=== PATIENT | female | born 1970 | race African-American/Black ===

== ENCOUNTER 2019-02-03 02:47 | Inpatient (IN) ==
[2019-02-03] MEDS ORDERED: ALTEPLASE 6 MG in SODIUM CHLORIDE 0.9% 120 ML IV SCH (03:00)
[2019-02-03] MEDS ORDERED: SODIUM CHLORIDE 0.9% 1,000 ML IV SCH ×2 (03:00)
[2019-02-03] MEDS ORDERED: POTASSIUM CHLORIDE 20 MEQ TABLET PO ONE (03:19)
[2019-02-03] MEDS ORDERED: HYDROmorphone 2 MG/1 ML VIAL ONE ×2 (03:21→04:08)
[2019-02-03] MEDS ORDERED: MIDAZOLAM 2 MG/2 ML VIAL ONE ×3 (03:21→13:24)
[2019-02-03] MEDS ORDERED: LIDOCAINE 1% 20 ML VIAL ONE (03:59)
[2019-02-03] MEDS ORDERED: HEPARIN/NACL 0.9% 2 UNITS/ML 1,000 ML IV ONE (03:59)
[2019-02-03] MEDS ORDERED: HEPARIN DRIP 25,000 UNITS/500 ML PREMIX IV SCH ×2 (04:00)
[2019-02-03] MEDS ORDERED: ALTEPLASE 2 MG VIAL ONE (05:11)
[2019-02-03] MEDS ORDERED: PNEUMOCOCCAL VACCINE (13 VALENT) 0.5 ML SYRINGE IM ONE (05:30)
[2019-02-03 07:03] LABS: Amorphous Crystals,Urine Occasional /HPF (Few); Apearance,Urine CLEAR (Clear); Bacteria,Urine Occasional /HPF (Few); Bilirubin,Urine Negative (Negative); Blood, Urine Negative (Negative); Glucose,Urine (UA) Negative (Negative); Ketones,Urine Negative (Negative); Nitrite,Urine Positive (Negative); Protein,Urine Negative; RBC,Urine 3 /HPF (0-4); Squamous Epithelial Cell,Urine Occasional /HPF (0-10); Urine Color Yellow (Yellow); Urine Specific Gravity 1.032 (1.001-1.035); Urine Urobilinogen < 2.0 EU/DL (0.2-1.0); WBC,Urine 4 /HPF (0-6)
[2019-02-03] MEDS ORDERED: POTASSIUM CHLORIDE 20 MEQ TABLET PO SCH (09:00)
[2019-02-03] MEDS ORDERED: ONDANSETRON 4 MG/2 ML VIAL IV PRN (09:52)
[2019-02-03] MEDS: MORPHINE 4 MG/1 ML VIAL IV PRN ×2 (12:31→19:00)
[2019-02-03] MEDS ORDERED: MIDAZOLAM 2 MG/2 ML VIAL IV ONE (13:30)
[2019-02-03 14:48] LABS: Calcium 7.8 MG/DL (8.5-10.1); Osmolality,Calculated 281.3 MOS/KG (273-304)
[2019-02-03] MEDS ORDERED: MAGNESIUM SULF RIDER 2 GM in PREMIX 1 EACH IV ONE (15:00)
[2019-02-03] MEDS: ASCORBIC ACID 500 MG TABLET PO SCH ×2 (15:11→20:14)
[2019-02-03] MEDS: APIXABAN 5 MG TABLET PO SCH ×2 (15:11→20:14)
[2019-02-04] MEDS: MORPHINE 4 MG/1 ML VIAL IV PRN ×3 (01:30→19:30)
[2019-02-04 04:43] LABS: Basophils # 0.1 10*3/uL (0.0-0.2); Basophils % 0.6 % (0.0-0.8); Eosinophils # 0.2 10*3/uL (0.0-0.87); Eosinophils % 2.3 % (0.00-10.9); Hematocrit 27.5 VOL% (35.7-47.0); Hemoglobin 8.1 GM/DL (12.0-16.0); Immature Granulocytes % 0.4 %; Immature Granulocytes Absolute 0.04 #; Mean Corpuscular HGB Conc 29.5 GM/DL (32-36); Mean Corpuscular Volume 66.6 FL (87-102); Monocytes % 4.8 % (1.7-12.7); Neutrophils % 71.9 % (38.7-73.9); Platelet Count 288 T/CUMM (130-400); Red Blood Count 4.13 MC/CUMM (3.8-5.5); Red Cell Distribution Width 21.7 % (9.3-17.3)
[2019-02-04 05:12] LABS: Anisocytosis 2+; Hypochromasia 2+; Microcytosis 2+; Ovalocytes 1+; Platelet Estimate Normal
[2019-02-04] MEDS: APIXABAN 5 MG TABLET PO SCH ×2 (08:28→21:28)
[2019-02-04] MEDS: ASCORBIC ACID 500 MG TABLET PO SCH ×2 (08:28→21:29)
[2019-02-04] MEDS: LORazepam 2 MG/1 ML VIAL IV PRN ×2 (09:21→23:49)
[2019-02-04] MEDS: CEFUROXIME 500 MG TABLET PO SCH ×2 (12:32→21:28)
[2019-02-04] MEDS: FERROUS SULFATE 325 MG TABLET PO SCH ×2 (14:24→21:28)
[2019-02-04] MEDS ORDERED: diphenhydrAMINE CAP 25 MG CAPSULE PO PRN (14:40)
[2019-02-04] MEDS ORDERED: MAGNESIUM HYDROXIDE SUSP 30 ML UDCUP PO PRN (14:40)
[2019-02-04] MEDS: METOPROLOL TARTRATE 25 MG TABLET PO SCH ×2 (16:19→21:29)
[2019-02-05 03:35] LABS: Basophils # 0.1 10*3/uL (0.0-0.2); Basophils % 0.6 % (0.0-0.8); Eosinophils # 0.1 10*3/uL (0.0-0.87); Eosinophils % 1.1 % (0.00-10.9); Hematocrit 24.5 VOL% (35.7-47.0); Hemoglobin 7.2 GM/DL (12.0-16.0); Immature Granulocytes % 0.4 %; Immature Granulocytes Absolute 0.04 #; Lymphocytes % 18.3 % (21.3-54.2); Mean Corpuscular HGB Conc 29.4 GM/DL (32-36); Mean Corpuscular Volume 66.4 FL (87-102); Monocytes % 5.2 % (1.7-12.7); Neutrophils % 74.4 % (38.7-73.9); Platelet Count 249 T/CUMM (130-400); Red Blood Count 3.69 MC/CUMM (3.8-5.5); Red Cell Distribution Width 21.2 % (9.3-17.3); White Blood Count 10.8 T/CUMM (4-12)
[2019-02-05 03:44] LABS: Calcium 8.2 MG/DL (8.5-10.1); Osmolality,Calculated 276.4 MOS/KG (273-304)
[2019-02-05 04:05] LABS: Hypochromasia 1+; Platelet Estimate Normal; Polychromasia Few
[2019-02-05 04:06] LABS: Elliptocytes Few; Microcytosis 2+
[2019-02-05] MEDS ORDERED: SODIUM CHLORIDE 0.9% 1,000 ML IV PRN (07:32)
[2019-02-05] MEDS: FERROUS SULFATE 325 MG TABLET PO SCH ×3 (09:02→20:24)
[2019-02-05] MEDS: APIXABAN 5 MG TABLET PO SCH ×2 (09:02→20:24)
[2019-02-05] MEDS: CEFUROXIME 500 MG TABLET PO SCH ×2 (09:02→20:24)
[2019-02-05] MEDS: ASCORBIC ACID 500 MG TABLET PO SCH ×2 (09:02→20:24)
[2019-02-05] MEDS: METOPROLOL TARTRATE 25 MG TABLET PO SCH ×2 (09:02→20:25)
[2019-02-05] MEDS: MORPHINE 4 MG/1 ML VIAL IV PRN ×2 (14:47→20:56)
[2019-02-05 19:22] LABS: Hematocrit 28.9 VOL% (35.7-47.0)
[2019-02-05 19:36] LABS: Hemoglobin 8.7 GM/DL (12.0-16.0)
[2019-02-06] MEDS: MORPHINE 4 MG/1 ML VIAL IV PRN (01:32)
[2019-02-06 05:07] LABS: Basophils # 0.1 10*3/uL (0.0-0.2); Basophils % 0.8 % (0.0-0.8); Eosinophils # 0.3 10*3/uL (0.0-0.87); Eosinophils % 3.2 % (0.00-10.9); Hematocrit 29.5 VOL% (35.7-47.0); Hemoglobin 9.1 GM/DL (12.0-16.0); Immature Granulocytes % 0.6 %; Immature Granulocytes Absolute 0.06 #; Lymphocytes # 2.2 10*3/uL (1.4-4.0); Mean Corpuscular HGB Conc 30.8 GM/DL (32-36); Mean Corpuscular Volume 71.3 FL (87-102); Monocytes % 6.8 % (1.7-12.7); NRBC # 0.02 10*3/uL; Neutrophils % 66.6 % (38.7-73.9); Platelet Count 236 T/CUMM (130-400); Red Blood Count 4.14 MC/CUMM (3.8-5.5); Red Cell Distribution Width 23.9 % (9.3-17.3); White Blood Count 10.1 T/CUMM (4-12)
[2019-02-06 05:14] LABS: Calcium 8.4 MG/DL (8.5-10.1); Osmolality,Calculated 279.3 MOS/KG (273-304)
[2019-02-06] MEDS: APIXABAN 5 MG TABLET PO SCH (08:28)
[2019-02-06] MEDS: FERROUS SULFATE 325 MG TABLET PO SCH (08:28)
[2019-02-06] MEDS: CEFUROXIME 500 MG TABLET PO SCH (08:28)
[2019-02-06] MEDS: METOPROLOL TARTRATE 25 MG TABLET PO SCH (08:29)
[2019-02-06] MEDS: ASCORBIC ACID 500 MG TABLET PO SCH (08:29)
[2019-02-06] MEDS ORDERED: traMADol 50 MG TABLET PO PRN (10:11)
[2019-02-06 12:45] VITALS: BP 135/78
== END 2019-02-06 13:55 | disposition home or self-care (01) | DRG 176 ==
LOC: N.CL 02:47 → N.CC 03:31 → N.TELES 02-04 14:17
PROVIDERS: ADMIT Internal Medicine Cardiovascular Disease; ATTEND Internal Medicine Cardiovascular Disease